=== PATIENT | male | born 1960 | race African-American/Black ===

== ENCOUNTER 2016-11-13 18:56 | Emergency (ER) | payer MEDICARE, MEDICAID ==
[~2016-11-13] VITALS: Ht 175.3 cm; Wt 75.0 kg
[2016-11-13 18:56] VITALS: BP 140/98
[2016-11-13] MEDS ORDERED: ARIP2TAB9 PO (18:59)
[2016-11-13] MEDS ORDERED: ESCI5TAB PO (18:59)
== END 2016-11-13 20:00 | disposition left against medical advice (07) ==
LOC: ER 19:58
DX: R52 Pain, unspecified (principal); Z53.21 Procedure and treatment not carried out due to patient leaving prior to being seen by health care provider